=== PATIENT | female | born 2000 | race Caucasian/White ===

== ENCOUNTER 2021-03-12 17:58 | Observation (INO) ==
--- NOTE | 2021-03-12 18:08 | ED.PDOC ---
General ED Provider: Dr. AGA SAAVEDRA Chief Complaint: Abdominal Pain Stated Complaint: Upper abdominal pain with some vomiting for a day or so, no fever or diarrhea, no chest pain or cough Time Seen by Provider: 03/12/21 18:07 Mode of Arrival: Walk-In Information Source: Patient Exam Limitations: No limitations Nursing and Triage Documentation Reviewed and Agree: Yes Does patient meet sepsis criteria?: No System Inflammatory Response Syndrome: Not Applicable Sepsis Protocol: For patient's 13 years and over: Temp is 96.8 and below OR 101 and greater Pulse >90 BPM Resp >20/minute Acutely Altered Mental Status Are patient's symptoms suggestive of a new infection, such as: -Pneumonia -Skin, Soft Tissue -Endocarditis -UTI -Bone, Joint Infection -Implantable Device -Acute Abdominal Infection -Wound Infection -Meningitis -Blood Stream Catheter Infection -Unknown GI Complaint Exam Abdominal Pain Complaint/Exam Onset: Gradual Duration: day or two Symptoms Are: Still present Timing: Constant Initial Severity: Mild Current Severity: Moderate Location of Pain: Epigastric Character: Reports Aching Aggravating: Reports Food Alleviating: Reports None Associated Signs and Symptoms: Reports Nausea and Vomiting AAA Risk Factors: Reports None Cardiac Risk Factors: Reports None Ectopic Risk Factors: Reports None Ovarian Torsion Risk Factors: Reports Reproductive age Surgical Obstruction Risk Factors: Reports None Related Surgical History: Reports None Abdominal Findings: Present Other (TTP RUQ and epigast.) Review of Systems Review Of Systems Constitutional: Reports Malaise and Weakness Eyes: Reports No symptoms Ears, Nose, Mouth, Throat: Reports No symptoms Respiratory: Reports No symptoms Cardiac: Reports No symptoms GI: Reports Abdominal pain, Nausea, Poor appetite and Vomiting : Reports No symptoms Musculoskeletal: Reports No symptoms Skin: Reports No symptoms Neurological: Reports No symptoms Endocrine: Reports No symptoms Hematologic/Lymphatic: Reports No symptoms All Other Systems: Reviewed and Negative [facility] Medical History Depressive disorder Family History (Updated 03/13/21 @ 00:03 by RIVKA DALLAS RN) Mother No known health problems FATHER No known health problems Social History Smoking and tobacco status: Never smoker Substance use type: does not use Female Reproductive History Menstrual Hx Hysterectomy: No Hx Tubal Ligation: No Physical Exam Physical Exam Appearance: Reports Ill-appearing Ill-appearing: Moderate Pain Distress: Moderate Eyes: Reports NEMO ENT: Reports Oropharynx normal Neck: Supple Respiratory: Reports Airway patent and Breath sounds clear Cardiovascular: Reports Pulses normal GI/: Reports Soft and Nontender Musculoskeletal: Reports Normal strength and ROM intact Skin: Reports Warm and Dry Neurological: Reports Sensation intact and Motor intact Psychiatric: Reports Affect appropriate Interpretation Radiology Interpretation Radiology Interpretation By: Radiologist Radiology Results: Positive Exam Interpreted: CT Scan (abd/pel - pancreatitis) Critical Care Note Critical Care Note Total Critical Care Time (mins): 0 Course Course Hematology/Chemistry: 03/13/21 05:00 03/13/21 05:00 Orders, Labs, Meds: Lab Review 03/12/21 03/12/21 03/12/21 18:57 18:57 19:35 WBC 13.29 H RBC 5.11 Hgb 13.3 Hct 41.5 MCV 81.2 MCH 26.0 L MCHC 32.0 RDW Coeff of Hank 13.5 Plt Count 458 H Immature Gran % (Auto) 0.4 Neut % (Auto) 81.2 H Lymph % (Auto) 11.4 [place] % (Auto) 6.6 Eos % (Auto) 0.1 Baso % (Auto) 0.3 Neut # (Auto) 10.8 H Lymph # (Auto) 1.5 [place] # (Auto) 0.9 Eos # (Auto) 0.0 Baso # (Auto) 0.0 Immature Gran # (Auto) 0.1 Sodium Potassium Chloride Carbon Dioxide Anion Gap BUN Creatinine Estimated GFR (MDRD) BUN/Creatinine Ratio Glucose Calcium Total Bilirubin AST ALT Alkaline Phosphatase Total Protein Albumin Globulin Albumin/Globulin Ratio Amylase Lipase Urine Color Yellow Urine Clarity Clear Urine pH 6.0 Ur Specific [place] <=1.005 Urine Protein Negative Urine Glucose (UA) Negative Urine Ketones Negative Urine Blood Trace-intact H Urine Nitrite Negative Urine Bilirubin 1+ H Urine Urobilinogen 0.2 Ur Leukocyte Esterase Trace H Urine Microscopic RBC 2-5 Urine Microscopic WBC 2-5 Ur Squamous Epith Cells 10-20 Urine Bacteria Trace Urine Test Negative SARS CoV-2 RNA Rapid MADHU 03/12/21 03/12/21 19:35 20:55 WBC RBC Hgb Hct MCV MCH MCHC RDW Coeff of Hank Plt Count Immature Gran % (Auto) Neut % (Auto) Lymph % (Auto) [place] % (Auto) Eos % (Auto) Baso % (Auto) Neut # (Auto) Lymph # (Auto) [place] # (Auto) Eos # (Auto) Baso # (Auto) Immature Gran # (Auto) Sodium 141.3 Potassium 3.76 Chloride 102.7 Carbon Dioxide 26.6 Anion Gap 15.76 BUN 7.1 Creatinine 0.62 Estimated GFR (MDRD) 123.00 BUN/Creatinine Ratio 11.45 Glucose 104.4 Calcium 9.74 Total Bilirubin 4.11 H AST 181.2 H ALT 313.6 H Alkaline Phosphatase 168.8 H Total Protein 8.37 H Albumin 4.83 Globulin 3.54 Albumin/Globulin Ratio 1.36 Amylase 3318.1 H* Lipase 85659.3 H Urine Color Urine Clarity Urine pH Ur Specific [place] Urine Protein Urine Glucose (UA) Urine Ketones Urine Blood Urine Nitrite Urine Bilirubin Urine Urobilinogen Ur Leukocyte Esterase Urine Microscopic RBC Urine Microscopic WBC Ur Squamous Epith Cells Urine Bacteria Urine Test SARS CoV-2 RNA Rapid MADHU Negative Orders Category Date Time Status ACTIVITY .BR with BRP CARE 03/12/21 22:25 Active INTAKE & OUTPUT Q8HR CARE 03/12/21 22:25 Active VITAL SIGNS Q4HR CARE 03/12/21 22:25 Active AMYLASE Stat LAB 03/12/21 19:35 Completed CBC W/ AUTO DIFF DAILY@0600 LAB 03/13/21 05:00 Completed CBC W/ AUTO DIFF DAILY@0600 LAB 03/14/21 06:00 Ordered CBC W/ AUTO DIFF Stat LAB 03/12/21 19:35 Completed COMPREHENSIVE METABOLIC PANEL DAILY@0600 LAB 03/13/21 05:00 Completed COMPREHENSIVE METABOLIC PANEL DAILY@0600 LAB 03/14/21 06:00 Ordered COMPREHENSIVE METABOLIC PANEL Stat LAB 03/12/21 19:35 Completed LIPASE Stat LAB 03/12/21 19:35 Completed SARS COV-2 RNA RAPID MADHU Stat LAB 03/12/21 20:55 Completed URINALYSIS C & S IF INDICATED Stat LAB 03/12/21 18:57 Completed URINE Stat LAB 03/12/21 18:57 Completed Ciprofloxacin/D5w [Cipro 400 mg/200 ml D5w] MEDS 03/12/21 22:30 Active 400 mg in 200 ml IV Q12HR Hydromorphone HCl [Dilaudid 1 mg/ml Syringe] MEDS 03/12/21 21:25 Discontinued 1 mg IVP ONCE ONE Hydromorphone HCl [Dilaudid 1 mg/ml Syringe] MEDS 03/12/21 22:25 Active 1 mg IVP Q4HR PRN Metronidazole/Sodium Chloride [Flagyl 500 mg/100 ml] MEDS 03/12/21 22:30 Active 500 mg in 100 ml IV Q8HR Ondansetron HCl/Pf [Zofran 4 mg/2 ml] MEDS 03/12/21 22:25 Active 4 mg IVP Q4H PRN Ondansetron [Zofran Odt] MEDS 03/12/21 19:22 Discontinued 8 mg PO ONCE ONE Potassium Chloride/D5-0.45NACL [D5%-1/2Ns-KCl 20 Meq/l MEDS 03/12/21 21:11 Discontinued IV Patricia] 1,000 ml IV 125 mls/hr RESUSCITATION STATUS Routine OTHERS 03/12/21 22:[address] ABDOMEN/PELVIS WO CONTRAST Stat RADS 03/12/21 19:22 Completed Medications Generic Name Dose Route Start Last Admin Trade Name PressConnect PRN Reason Stop Dose Admin Hydromorphone HCl 1 mg 03/12/21 22:25 Hydromorphone Hcl 1 Mg/Ml Syringe IVP Q4HR PRN Pain Hydroxyzine HCl 25 mg 03/12/21 23:21 03/12/21 23:47 Hydroxyzine Hcl 25 Mg/Ml Vial IM 25 mg Q8H PRN Administration Nausea / Vomiting Ciprofloxacin/Dextrose 400 mg in 200 mls @ 200 mls/hr 03/12/21 22:30 03/12/21 23:04 Cipro 400 Mg/200 Ml D5w IV 03/15/21 22:29 200 mls/hr Q12HR RODNEY Administration Metronidazole 500 mg in 100 mls @ 100 mls/hr 03/12/21 22:30 03/13/21 05:32 Flagyl 500 Mg/100 Ml IV 03/15/21 22:29 100 mls/hr Q8HR RODNEY Administration Ondansetron HCl 4 mg 03/12/21 22:25 Ondansetron Hcl/Pf 4 Mg/2 Ml Sdv IVP Q4H PRN Nausea / Vomiting Discontinued Medications Generic Name Dose Route Start Last Admin Trade Name Freq PRN Reason Stop Dose Admin Hydromorphone HCl 1 mg 03/12/21 21:25 03/12/21 21:31 Hydromorphone Hcl 1 Mg/Ml Syringe IVP 03/12/21 21:26 1 mg ONCE ONE Administration Potassium Chloride/Dextrose/Sod Cl 1,000 mls @ 125 mls/hr 03/12/21 21:11 03/12/21 21:16 D5%-1/2ns-Kcl 20 Meq/L Iv Patricia IV 03/13/21 05:10 125 mls/hr .Q8H STA Administration Potassium Chloride/Dextrose/Sod Cl 1,000 mls @ 125 mls/hr 03/12/21 22:30 03/12/21 23:08 D5%-1/2ns-Kcl 20 Meq/L Iv Patricia IV 03/13/21 06:29 Not Given .Q8H STA Ondansetron HCl 8 mg 03/12/21 19:22 03/12/21 19:29 Ondansetron Hcl 4 Mg Tab.Rapdis PO 03/12/21 19:23 8 mg ONCE ONE Administration Vital Signs: Temp Pulse Resp BP Pulse Ox 03/12/21 21:02 98.4 F 70 18 125/87 99 03/12/21 17:59 97.3 F L 84 16 142/87 H 97 Discharge Plan Discharge Patient Disposition: PLACED OBSERVATION Discharge Problem: Acute gallstone pancreatitis ED Provider: AGA SAAVEDRA Condition: Stable Physician Progress Note: [Patient has gallstone pancreatitis, advised that she will need to be transferred for ERCP, etc. It is late now and she is quite anxious and asks that she be admitted here tonight, understands transfer will have to be tomorrow. Gave med, recheck labs in am, GB US in am. ]
[2021-03-12 19:06] LABS: BILIRUBIN,URINE 1+ (NEGATIVE); CLARITY,URINE Clear (CLEAR); COLOR,URINE Yellow (YELLOW); GLUCOSE, URINE (UA) Negative (NEGATIVE); KETONES,URINE Negative (NEGATIVE); LEUKOCYTE ESTERASE ,URINE Trace (NEGATIVE); NITRITE,URINE Negative (NEGATIVE); PROTEIN,URINE Negative (NEGATIVE); URINE, BLOOD Trace-intact (NEGATIVE); UROBILINOGEN,URINE 0.2 (0.2)
[2021-03-12 19:08] LABS: URINE PREGNANCY TEST NEGATIVE (NEGATIVE)
[2021-03-12 19:09] LABS: BACTERIA,URINE TRACE (NOT PRESENT)
[2021-03-12] MEDS ORDERED: ZOFRAN ODT PO ONE (19:22)
[2021-03-12 19:39] LABS: BASOPHILS % (AUTO) 0.3 % (0.0-3.0); EOSINOPHILS % (AUTO) 0.1 % (0.0-7.0); HEMATOCRIT 41.5 % (37.0-47.0); HEMOGLOBIN 13.3 g/dl (12.0-16.0); IMMATURE GRANULOCYTE # (AUTO) 0.1 (0.0-1.0); IMMATURE GRANULOCYTE % (AUTO) 0.4 % (0.0-5.0); LYMPHOCYTES # (AUTO) 1.5 K/uL (0.60-3.4); LYMPHOCYTES % (AUTO) 11.4 (10.0-50.0); MEAN CORPUSCULAR VOLUME 81.2 fl (81.0-99.0); MONOCYTES # (AUTO) 0.9 K/uL (0.4-2.0); MONOCYTES % (AUTO) 6.6 (0-10); NEUTROPHILS # (AUTO) 10.8 K/ul (2.0-6.9); NEUTROPHILS % (AUTO) 81.2 % (42.2-75.2); PLATELET COUNT 458 10^3/uL (140-440); RDW COEFFICIENT OF VARIATION 13.5 % (11.6-14.8); RED BLOOD COUNT 5.11 10^6/ul (4.20-5.40); WHITE BLOOD COUNT 13.29 K/ul (4.6-10.2)
--- NOTE | 2021-03-12 20:16 | CT ---
EXAM: CT of the abdomen pelvis without contrast History: Abdominal pain. Comparison: CT abdomen pelvis 03/12/2019 Technique: Multiplanar CT images through the abdomen pelvis were obtained without the administration of IV contrast Findings: Lung bases are clear. No acute osseous abnormalities. No renal stones and no hydronephrosis. No liver or splenic lesions. Gallbladder is not well distend ed. Possible gallbladder sludge. There is mild peripancreatic stranding. Adrenal glands are unrema rkable. The bowel obstruction. The appendix is normal. No free air and no ascites. No bladder wal l thickening. Uterus is not enlarged. No abdominal aortic aneurysm. Impression: 1. Early acute pancreatitis. 2. Possible gallbladder sludge or stones. Recommend ultrasound All CT scans are performed using dose optimization techniques as appropriate to the performed exam an d include at least one of the following: Automated exposure control, adjustment of the mA and/or kV according t o size, and the use of iterative reconstruction technique.
[2021-03-12 20:21] LABS: ALANINE AMINOTRANSFERASE 313.6 U/L (0-35); ALBUMIN 4.83 g/dL (3.5-5.0); ALKALINE PHOSPHATASE 168.8 U/L (38-126); ASPARTATE AMINO TRANSFERASE 181.2 U/L (14-36); BILIRUBIN,TOTAL 4.11 mg/dL (0.2-1.3); BLOOD UREA NITROGEN 7.1 mg/dL (7-17); CALCIUM 9.74 mg/dL (8.4-10.2); CARBON DIOXIDE 26.6 mmol/L (22-30.0); CHLORIDE 102.7 mmol/L (98-107); CREATININE 0.62 mg/dL (0.60-1.30); GLUCOSE 104.4 mg/dL (74-106); POTASSIUM 3.76 mmol/L (3.5-5.1); SODIUM 141.3 mmol/L (134.5-145); TOTAL PROTEIN 8.37 g/dL (6.3-8.2)
[2021-03-12 20:33] LABS: AMYLASE 3318.1 U/L (30-110)
[2021-03-12] MEDS ORDERED: D5%-1/2NS-KCL 20 MEQ/L IV SOL 1,000 ML IV STA ×2 (21:11→22:30)
[2021-03-12 21:16] LABS: LIPASE 45115.3 U/L (23-300)
[2021-03-12] MEDS ORDERED: DILAUDID 1 MG/ML SYRINGE IVP ONE (21:25)
[2021-03-12] MEDS ORDERED: DILAUDID 1 MG/ML SYRINGE IVP PRN (22:25)
[2021-03-12] MEDS ORDERED: ZOFRAN 4 MG/2 ML IVP PRN (22:25)
[2021-03-12] MEDS: CIPRO 400 MG/200 ML D5W 400 MG/200 ML BAG IV SCH (23:04)
[2021-03-12 23:21] VITALS: BMI 41.8
[2021-03-12] MEDS ORDERED: VISTARIL INJ IM PRN (23:21)
[2021-03-13] MEDS: FLAGYL 500 MG/100 ML 500 MG/100 ML BAG IV SCH ×4 (00:42→21:18)
[2021-03-13 05:17] LABS: BASOPHILS % (AUTO) 0.3 % (0.0-3.0); EOSINOPHILS % (AUTO) 0.1 % (0.0-7.0); HEMATOCRIT 36.8 % (37.0-47.0); HEMOGLOBIN 11.8 g/dl (12.0-16.0); IMMATURE GRANULOCYTE % (AUTO) 0.2 % (0.0-5.0); LYMPHOCYTES # (AUTO) 1.8 K/uL (0.60-3.4); LYMPHOCYTES % (AUTO) 18.6 (10.0-50.0); MEAN CORPUSCULAR HEMOGLOBIN 26.5 pg (27.0-31.0); MEAN CORPUSCULAR HGB CONC 32.1 (31.8-35.4); MEAN CORPUSCULAR VOLUME 82.7 fl (81.0-99.0); MONOCYTES # (AUTO) 0.5 K/uL (0.4-2.0); MONOCYTES % (AUTO) 5.3 (0-10); NEUTROPHILS # (AUTO) 7.1 K/ul (2.0-6.9); NEUTROPHILS % (AUTO) 75.5 % (42.2-75.2); PLATELET COUNT 403 10^3/uL (140-440); RDW COEFFICIENT OF VARIATION 13.8 % (11.6-14.8); RED BLOOD COUNT 4.45 10^6/ul (4.20-5.40); WHITE BLOOD COUNT 9.39 K/ul (4.6-10.2)
[2021-03-13 05:25] LABS: ALANINE AMINOTRANSFERASE 268.7 U/L (0-35); ALBUMIN 4.27 g/dL (3.5-5.0); ALKALINE PHOSPHATASE 142.3 U/L (38-126); ASPARTATE AMINO TRANSFERASE 121.9 U/L (14-36); BILIRUBIN,TOTAL 1.68 mg/dL (0.2-1.3); BLOOD UREA NITROGEN 6.3 mg/dL (7-17); CALCIUM 9.07 mg/dL (8.4-10.2); CARBON DIOXIDE 26.9 mmol/L (22-30.0); CHLORIDE 102.9 mmol/L (98-107); CREATININE 0.52 mg/dL (0.60-1.30); GLUCOSE 127.6 mg/dL (74-106); POTASSIUM 3.76 mmol/L (3.5-5.1); SODIUM 139.4 mmol/L (134.5-145); TOTAL PROTEIN 7.26 g/dL (6.3-8.2)
[2021-03-13 05:35] LABS: AMYLASE 1462.4 U/L (30-110)
[2021-03-13 05:54] LABS: LIPASE 13016.7 U/L (23-300)
[2021-03-13] MEDS ORDERED: SODIUM CHLORIDE 1,000 ML IV SCH (09:00)
[2021-03-13] MEDS: CIPRO 400 MG/200 ML D5W 400 MG/200 ML BAG IV SCH ×2 (09:26→20:15)
[2021-03-13] MEDS: SODIUM CHLORIDE 0.9%-KCL 20 MEQ 1,000 ML IV SCH ×2 (09:26→19:11)
--- NOTE | 2021-03-13 10:35 | US ---
EXAM: Right upper quadrant ultrasound HISTORY: Pain, nausea vomiting TECHNIQUE: Elam scale and color Doppler imaging of the right upper quadrant of the abdomen was perfo rmed. Comparison CT scan dated 03/12/2021. FINDINGS: The liver demonstrates normal parenchymal echotexture. Normal blood flow is identified wi thin the portal vein. The evaluation of the liver was limited due to the patient's body habitus. No obvious focal lesions are seen within the liver. The right kidney measures 11.1 cm in length. Ther e is no hydronephrosis. The common bile duct is measuring 3.8 mm diameter. The gallbladder was not well seen on this examination. Gallstones are seen. There is sludge seen within the gallbladder. T he gallbladder wall is measuring approximately 4.3 mm thick. The pancreas was not well seen. The in ferior vena cava was not well seen. IMPRESSION: Overall limited evaluation as described above. Cholelithiasis. There is suspicion for superimposed gallbladder wall thickening measuring 4.3 mm. A nuclear medicine HIDA scan can be obtained for further evaluation. The common bile duct is measuring 3.8 mm diameter.
[2021-03-14 05:12] LABS: BASOPHILS # (AUTO) 0.1 K/uL (0-0.2); BASOPHILS % (AUTO) 0.6 % (0.0-3.0); EOSINOPHILS # (AUTO) 0.1 K/ul (0.0-0.7); EOSINOPHILS % (AUTO) 0.6 % (0.0-7.0); HEMATOCRIT 36.2 % (37.0-47.0); HEMOGLOBIN 11.5 g/dl (12.0-16.0); IMMATURE GRANULOCYTE % (AUTO) 0.4 % (0.0-5.0); LYMPHOCYTES # (AUTO) 2.6 K/uL (0.60-3.4); LYMPHOCYTES % (AUTO) 31.2 (10.0-50.0); MEAN CORPUSCULAR HEMOGLOBIN 26.7 pg (27.0-31.0); MEAN CORPUSCULAR HGB CONC 31.8 (31.8-35.4); MONOCYTES # (AUTO) 0.6 K/uL (0.4-2.0); MONOCYTES % (AUTO) 6.7 (0-10); NEUTROPHILS # (AUTO) 5.1 K/ul (2.0-6.9); NEUTROPHILS % (AUTO) 60.5 % (42.2-75.2); PLATELET COUNT 365 10^3/uL (140-440); RDW COEFFICIENT OF VARIATION 14.1 % (11.6-14.8); RED BLOOD COUNT 4.31 10^6/ul (4.20-5.40); WHITE BLOOD COUNT 8.42 K/ul (4.6-10.2)
[2021-03-14] MEDS: FLAGYL 500 MG/100 ML 500 MG/100 ML BAG IV SCH ×2 (05:14→13:39)
[2021-03-14] MEDS: SODIUM CHLORIDE 0.9%-KCL 20 MEQ 1,000 ML IV SCH (05:15)
[2021-03-14 05:19] VITALS: BP 122/78
[2021-03-14 05:33] LABS: ALANINE AMINOTRANSFERASE 177.9 U/L (0-35); ALBUMIN 3.74 g/dL (3.5-5.0); ALKALINE PHOSPHATASE 116.5 U/L (38-126); ASPARTATE AMINO TRANSFERASE 49.1 U/L (14-36); BILIRUBIN,TOTAL 0.76 mg/dL (0.2-1.3); BLOOD UREA NITROGEN 5.4 mg/dL (7-17); CALCIUM 8.57 mg/dL (8.4-10.2); CARBON DIOXIDE 24.4 mmol/L (22-30.0); CHLORIDE 108.9 mmol/L (98-107); CREATININE 0.54 mg/dL (0.60-1.30); GLUCOSE 84.9 mg/dL (74-106); POTASSIUM 3.75 mmol/L (3.5-5.1); SODIUM 141.2 mmol/L (134.5-145); TOTAL PROTEIN 6.52 g/dL (6.3-8.2)
[2021-03-14 07:57] LABS: AMYLASE 280.1 U/L (30-110); LIPASE 1511.4 U/L (23-300)
--- NOTE | 2021-03-14 08:00 | PCM ---
Chief Complaint Chief Complaint: Nausea -vomiting and LUQ abdominal pain History of Present Illness History of Present Illness: This 20-year-old female patient presented to the emergency room the early evening of March 12, 2021 complaining of abdominal pain located in the left upper abdomen with associated Nausea and vomiting. She has a known past history of cholecystitis with cholelithiasis. She was evaluated with a CT scan of the abdomen in the emergency room and it was determined that she in fact did have a acute gallstone pancreatitis.She was seen at Dr Munoz office in July 2019 for similar problem by Ketty GUEVARA with plan to refer to surgeon and schedule a HIDA scan but apparently due to COVID 19 Pandemic her work up was put on hold with close follow up recommended Review of Systems Constitutional: Reports Weakness and Loss of appetite Eyes: Reports No symptoms Ears: Reports No symptoms Nose: Reports No symptoms Throat: Reports No symptoms Mouth: Reports No symptoms Respiratory: Reports No symptoms Cardiovascular: Reports No symptoms Gastrointestinal: Reports Abdominal pain, Nausea, Vomiting and Diarrhea Genitourinary: Reports No symptoms Neurological: Reports No symptoms Musculoskeletal: Reports No symptoms Skin: Reports No symptoms Immunology: Reports No symptoms Hematology: Reports No symptoms Endocrine: Reports No symptoms Psychiatric: Reports No symptoms Allergies Allergies Allergy/AdvReac Type Severity Reaction Status Date / Time No Known Allergies Allergy Verified 03/13/21 00:05 PFSH Medical History Depressive disorder Family History Mother No known health problems FATHER No known health problems Social History Smoking and tobacco status: Never smoker Substance use type: does not use Medications Medications: Medications Generic Name Dose Route Start Last Admin Trade Name Freq PRN Reason Stop Dose Admin Hydromorphone HCl 1 mg 03/12/21 22:25 Hydromorphone Hcl 1 Mg/Ml Syringe IVP Q4HR PRN Pain Hydroxyzine HCl 25 mg 03/12/21 23:21 03/12/21 23:47 Hydroxyzine Hcl 25 Mg/Ml Vial IM 25 mg Q8H PRN Administration Nausea / Vomiting Ciprofloxacin/Dextrose 400 mg in 200 mls @ 200 mls/hr 03/12/21 22:30 03/13/21 20:15 Cipro 400 Mg/200 Ml D5w IV 03/15/21 22:29 200 mls/hr Q12HR RODNEY Administration Metronidazole 500 mg in 100 mls @ 100 mls/hr 03/12/21 22:30 03/14/21 05:14 Flagyl 500 Mg/100 Ml IV 03/15/21 22:29 100 mls/hr Q8HR RODNEY Administration Potassium Chloride/Sodium Chloride 1,000 mls @ 125 mls/hr 03/13/21 08:30 03/14/21 05:15 Sodium Chloride 0.9%-Kcl 20 Meq IV 125 mls/hr .Q8H RODNEY Administration Ondansetron HCl 4 mg 03/12/21 22:25 Ondansetron Hcl/Pf 4 Mg/2 Ml Sdv IVP Q4H PRN Nausea / Vomiting Body Composition Height: 5 ft 5 in Weight: 251 lb Body Mass Index (BMI): 41.8 Vital Signs Temperature: 98.9 F Pulse Rate: 71 Respiratory Rate: 16 Blood Pressure: 122/78 O2 Sat by Pulse Oximetry: 98 Physical Examination Appearance: Reports Well-appearing, No pain distress and Obese Ill-appearing: Mild Pain Distress: Mild Eyes: Reports NEMO, EOMI, Conjunctiva clear, Right pupil size and Left pupil size ENT: Reports Ears normal, Nose normal and Oropharynx normal Neck: Supple Respiratory: Reports Airway patent, Breath sounds clear and Respirations nonlabored Cardiovascular: Reports RRR, Pulses normal, No rub and No murmur GI/: Reports Soft, No masses, Bowel sounds normal and Tender (mid epidgastrium and LUQ); Denies Hepatomegaly or Splenomegaly Musculoskeletal: Reports Normal strength, ROM intact and No edema Skin: Reports Warm, Dry and Normal color Neurological: Reports Sensation intact, Motor intact, Reflexes intact, Cranial nerves intact and Oriented Psychiatric: Reports Affect appropriate and Mood appropriate Lab/Tests/Diagnostic Imaging Lab/Tests/Diagnostic Imaging: Lab Review 03/12/21 03/12/21 03/12/21 18:57 18:57 19:35 WBC 13.29 H RBC 5.11 Hgb 13.3 Hct 41.5 MCV 81.2 MCH 26.0 L MCHC 32.0 RDW Coeff of Hank 13.5 Plt Count 458 H Immature Gran % (Auto) 0.4 Neut % (Auto) 81.2 H Lymph % (Auto) 11.4 [place] % (Auto) 6.6 Eos % (Auto) 0.1 Baso % (Auto) 0.3 Neut # (Auto) 10.8 H Lymph # (Auto) 1.5 [place] # (Auto) 0.9 Eos # (Auto) 0.0 Baso # (Auto) 0.0 Immature Gran # (Auto) 0.1 Sodium Potassium Chloride Carbon Dioxide Anion Gap BUN Creatinine Estimated GFR (MDRD) BUN/Creatinine Ratio Glucose Calcium Total Bilirubin AST ALT Alkaline Phosphatase Total Protein Albumin Globulin Albumin/Globulin Ratio Amylase Lipase Urine Color Yellow Urine Clarity Clear Urine pH 6.0 Ur Specific [place] <=1.005 Urine Protein Negative Urine Glucose (UA) Negative Urine Ketones Negative Urine Blood Trace-intact H Urine Nitrite Negative Urine Bilirubin 1+ H Urine Urobilinogen 0.2 Ur Leukocyte Esterase Trace H Urine Microscopic RBC 2-5 Urine Microscopic WBC 2-5 Ur Squamous Epith Cells 10-20 Urine Bacteria Trace Urine Test Negative SARS CoV-2 RNA Rapid MADHU 03/12/21 03/12/21 03/13/21 19:35 20:55 05:00 WBC 9.39 RBC 4.45 Hgb 11.8 L Hct 36.8 L MCV 82.7 MCH 26.5 L MCHC 32.1 RDW Coeff of Hank 13.8 Plt Count 403 Immature Gran % (Auto) 0.2 Neut % (Auto) 75.5 H Lymph % (Auto) 18.6 [place] % (Auto) 5.3 Eos % (Auto) 0.1 Baso % (Auto) 0.3 Neut # (Auto) 7.1 H Lymph # (Auto) 1.8 [place] # (Auto) 0.5 Eos # (Auto) 0.0 Baso # (Auto) 0.0 Immature Gran # (Auto) 0.0 Sodium 141.3 Potassium 3.76 Chloride 102.7 Carbon Dioxide 26.6 Anion Gap 15.76 BUN 7.1 Creatinine 0.62 Estimated GFR (MDRD) 123.00 BUN/Creatinine Ratio 11.45 Glucose 104.4 Calcium 9.74 Total Bilirubin 4.11 H AST 181.2 H ALT 313.6 H Alkaline Phosphatase 168.8 H Total Protein 8.37 H Albumin 4.83 Globulin 3.54 Albumin/Globulin Ratio 1.36 Amylase 3318.1 H* Lipase 72910.3 H Urine Color Urine Clarity Urine pH Ur Specific [place] Urine Protein Urine Glucose (UA) Urine Ketones Urine Blood Urine Nitrite Urine Bilirubin Urine Urobilinogen Ur Leukocyte Esterase Urine Microscopic RBC Urine Microscopic WBC Ur Squamous Epith Cells Urine Bacteria Urine Test SARS CoV-2 RNA Rapid MADHU Negative 03/13/21 03/13/21 03/14/21 05:00 05:00 04:39 WBC 8.42 RBC 4.31 Hgb 11.5 L Hct 36.2 L MCV 84.0 MCH 26.7 L MCHC 31.8 RDW Coeff of Hank 14.1 Plt Count 365 Immature Gran % (Auto) 0.4 Neut % (Auto) 60.5 Lymph % (Auto) 31.2 [place] % (Auto) 6.7 Eos % (Auto) 0.6 Baso % (Auto) 0.6 Neut # (Auto) 5.1 Lymph # (Auto) 2.6 [place] # (Auto) 0.6 Eos # (Auto) 0.1 Baso # (Auto) 0.1 Immature Gran # (Auto) 0.0 Sodium 139.4 Potassium 3.76 Chloride 102.9 Carbon Dioxide 26.9 Anion Gap 13.36 BUN 6.3 L Creatinine 0.52 L Estimated GFR (MDRD) 150.00 BUN/Creatinine Ratio 12.11 Glucose 127.6 H Calcium 9.07 Total Bilirubin 1.68 H D AST 121.9 H D ALT 268.7 H D Alkaline Phosphatase 142.3 H D Total Protein 7.26 Albumin 4.27 Globulin 2.99 Albumin/Globulin Ratio 1.42 Amylase 1462.4 H* D Lipase 37233.7 H Urine Color Urine Clarity Urine pH Ur Specific [place] Urine Protein Urine Glucose (UA) Urine Ketones Urine Blood Urine Nitrite Urine Bilirubin Urine Urobilinogen Ur Leukocyte Esterase Urine Microscopic RBC Urine Microscopic WBC Ur Squamous Epith Cells Urine Bacteria Urine Test SARS CoV-2 RNA Rapid MADHU 03/14/21 04:39 WBC RBC Hgb Hct MCV MCH MCHC RDW Coeff of Hank Plt Count Immature Gran % (Auto) Neut % (Auto) Lymph % (Auto) [place] % (Auto) Eos % (Auto) Baso % (Auto) Neut # (Auto) Lymph # (Auto) [place] # (Auto) Eos # (Auto) Baso # (Auto) Immature Gran # (Auto) Sodium 141.2 Potassium 3.75 Chloride 108.9 H Carbon Dioxide 24.4 Anion Gap 11.65 BUN 5.4 L Creatinine 0.54 L Estimated GFR (MDRD) 144.00 BUN/Creatinine Ratio 10.00 Glucose 84.9 Calcium 8.57 Total Bilirubin 0.76 AST 49.1 H D ALT 177.9 H D Alkaline Phosphatase 116.5 D Total Protein 6.52 Albumin 3.74 Globulin 2.78 Albumin/Globulin Ratio 1.34 Amylase Lipase Urine Color Urine Clarity Urine pH Ur Specific [place] Urine Protein Urine Glucose (UA) Urine Ketones Urine Blood Urine Nitrite Urine Bilirubin Urine Urobilinogen Ur Leukocyte Esterase Urine Microscopic RBC Urine Microscopic WBC Ur Squamous Epith Cells Urine Bacteria Urine Test SARS CoV-2 RNA Rapid MADHU Orders Category Date Time Status ADMIT OBSERVATION [PLACE PATIENT OBSERVATION] .TO ADMISSION 03/12/21 22:55 Active MEDSURG (NON-MONITORED BED) ACTIVITY .BR with BRP CARE 03/12/21 22:25 Active GIVE HS SNACK 2100 CARE 03/13/21 08:32 Active INTAKE & OUTPUT Q8HR CARE 03/12/21 22:25 Active NPO REMINDER: IMAGING ONCE CARE 03/12/21 22:32 Completed NPO REMINDER: IMAGING ONCE CARE 03/13/21 08:42 Completed VITAL SIGNS Q4HR CARE 03/12/21 22:25 Active BOOST BREEZE [SUPPLEMENT: BOOST BREEZE] DIETARY 03/13/21 Lunch Ordered CLEAR LIQUID DIET DIETARY 03/13/21 Lunch Ordered HS SNACK DIETARY 03/13/21 Dinner Ordered WET PRIMER POWDER BLENDER CONSULT [CONSULT WET PRIMER POWDER BLENDER] ONCE WET PRIMER POWDER BLENDER 03/13/21 09:31 Active AMYLASE Stat LAB 03/12/21 19:35 Completed AMYLASE Stat LAB 03/14/21 04:39 Received AMYLASE Timed LAB 03/13/21 05:00 Completed CBC W/ AUTO DIFF DAILY@0600 LAB 03/13/21 05:00 Completed CBC W/ AUTO DIFF DAILY@0600 LAB 03/14/21 04:39 Completed CBC W/ AUTO DIFF Stat LAB 03/12/21 19:35 Completed COMPREHENSIVE METABOLIC PANEL DAILY@0600 LAB 03/13/21 05:00 Completed COMPREHENSIVE METABOLIC PANEL DAILY@0600 LAB 03/14/21 04:39 Completed COMPREHENSIVE METABOLIC PANEL Stat LAB 03/12/21 19:35 Completed LIPASE Stat LAB 03/12/21 19:35 Completed LIPASE Stat LAB 03/14/21 04:39 Received LIPASE Timed LAB 03/13/21 05:00 Completed SARS COV-2 RNA RAPID MADHU Stat LAB 03/12/21 20:55 Completed URINALYSIS C & S IF INDICATED Stat LAB 03/12/21 18:57 Completed URINE Stat LAB 03/12/21 18:57 Completed Ciprofloxacin/D5w [Cipro 400 mg/200 ml D5w] MEDS 03/12/21 22:30 Active 400 mg in 200 ml IV Q12HR Hydromorphone HCl [Dilaudid 1 mg/ml Syringe] MEDS 03/12/21 21:25 Discontinued 1 mg IVP ONCE ONE Hydromorphone HCl [Dilaudid 1 mg/ml Syringe] MEDS 03/12/21 22:25 Active 1 mg IVP Q4HR PRN Hydroxyzine HCl [Vistaril Inj] MEDS 03/12/21 23:21 Active 25 mg IM Q8H PRN Metronidazole/Sodium Chloride [Flagyl 500 mg/100 ml] MEDS 03/12/21 22:30 Active 500 mg in 100 ml IV Q8HR Ondansetron HCl/Pf [Zofran 4 mg/2 ml] MEDS 03/12/21 22:25 Active 4 mg IVP Q4H PRN Ondansetron [Zofran Odt] MEDS 03/12/21 19:22 Discontinued 8 mg PO ONCE ONE Potassium Chloride in 0.9%NaCl [Sodium Chloride 0.9%- MEDS 03/13/21 08:30 Active KCl 20 Meq] 1,000 ml IV 125 mls/hr Potassium Chloride/D5-0.45NACL [D5%-1/2Ns-KCl 20 Meq/l MEDS 03/12/21 21:11 Discontinued IV Patricia] 1,000 ml IV 125 mls/hr Potassium Chloride/D5-0.45NACL [D5%-1/2Ns-KCl 20 Meq/l MEDS 03/12/21 22:30 Discontinued IV Patricia] 1,000 ml IV 125 mls/hr RESUSCITATION STATUS Routine OTHERS 03/12/21 22:[address] ABDOMEN/PELVIS WO CONTRAST Stat RADS 03/12/21 19:22 Completed HEPATOBILIARY W/EF/ NUC MED Stat RADS 03/14/21 08:40 Ordered ULTRASOUND ABDOMEN, RT. UPPER QUAD [U/S ABDOMEN RT RADS 03/13/21 08:00 Completed UPPER QUAD] Stat Medications Generic Name Dose Route Start Last Admin Trade Name Gena PRN Reason Stop Dose Admin Hydromorphone HCl 1 mg 03/12/21 22:25 Hydromorphone Hcl 1 Mg/Ml Syringe IVP Q4HR PRN Pain Hydroxyzine HCl 25 mg 03/12/21 23:21 03/12/21 23:47 Hydroxyzine Hcl 25 Mg/Ml Vial IM 25 mg Q8H PRN Administration Nausea / Vomiting Ciprofloxacin/Dextrose 400 mg in 200 mls @ 200 mls/hr 03/12/21 22:30 03/13/21 20:15 Cipro 400 Mg/200 Ml D5w IV 03/15/21 22:29 200 mls/hr Q12HR RODNEY Administration Metronidazole 500 mg in 100 mls @ 100 mls/hr 03/12/21 22:30 03/14/21 05:14 Flagyl 500 Mg/100 Ml IV 03/15/21 22:29 100 mls/hr Q8HR RODNEY Administration Potassium Chloride/Sodium Chloride 1,000 mls @ 125 mls/hr 03/13/21 08:30 03/14/21 05:15 Sodium Chloride 0.9%-Kcl 20 Meq IV 125 mls/hr .Q8H RODNEY Administration Ondansetron HCl 4 mg 03/12/21 22:25 Ondansetron Hcl/Pf 4 Mg/2 Ml Sdv IVP Q4H PRN Nausea / Vomiting Discontinued Medications Generic Name Dose Route Start Last Admin Trade Name Gena PRN Reason Stop Dose Admin Hydromorphone HCl 1 mg 03/12/21 21:25 03/12/21 21:31 Hydromorphone Hcl 1 Mg/Ml Syringe IVP 03/12/21 21:26 1 mg ONCE ONE Administration Potassium Chloride/Dextrose/Sod Cl 1,000 mls @ 125 mls/hr 03/12/21 21:11 03/12/21 21:16 D5%-1/2ns-Kcl 20 Meq/L Iv Patricia IV 03/13/21 05:10 125 mls/hr .Q8H STA Administration Potassium Chloride/Dextrose/Sod Cl 1,000 mls @ 125 mls/hr 03/12/21 22:30 03/12/21 23:08 D5%-1/2ns-Kcl 20 Meq/L Iv Patricia IV 03/13/21 06:29 Not Given .Q8H STA Ondansetron HCl 8 mg 03/12/21 19:22 03/12/21 19:29 Ondansetron Hcl 4 Mg Tab.Rapdis PO 03/12/21 19:23 8 mg ONCE ONE Administration Assessment (1) Acute gallstone pancreatitis: Status: Acute Code(s): K85.10 - Biliary acute pancreatitis without necrosis or infection SNOMED Code(s): 801826347 Plan Plan: Patient currently clinically improved. Will await results of Ultrasound of abdomen scheduuled today Will Schedule HIDA Scan for in AM and then depending on results will attempt to refer patient of GS or GI for consult. May need ERCP d/o findings plus Cholecystectomy. Explained treatment plans to patient and nursing staff.
[2021-03-14] MEDS: CIPRO 400 MG/200 ML D5W 400 MG/200 ML BAG IV SCH (08:13)
--- NOTE | 2021-03-14 08:13 | PCM.PROG ---
Date Seen by Provider: 03/14/21 Time Seen by Provider: 08:00 Subjective: "I feel much better", NPO since midnight, scheduled for HIDA scan today. Pain much improved. Objective: WD WN obese WF in no acute distress Vitals: T=98.9 F, P=71, R=16, PJ=501/78, SPO2=98 HEENT: ATNC, EOMI, PERRLA Neck: Supple, Pharynx clear Lungs: Clear to A/P CVS: RRR, no murmurs rubs or gallops Abdomen: Soft, nontender, nondistended. No rebound or guarding, still NPO Extremities: No CCEPR Neurological: Intact without focal deficits Skin: No abn noted Lab/Tests/Diagnostic Imaging: CT, GB US reviewed. No distinct stone seen but stranding and sludge noted. CBD 3.8 mm, mild GB thickening Plan: 1: Gallstone Pancreatitis-Amylase/lipase resolving. Vitals improving. Pain almost completely resolved. Will check results of HIDA scan and discuss with GI referral, anticipate transfer for ERCP or discharge home with outpatient follow up in 2-3 days.
--- NOTE | 2021-03-14 11:56 | NM ---
EXAM: Hepatobiliary scan HISTORY: Suspected cholecystitis. Stones and sludge. COMPARISON: None of this type. Ultrasound 03/13/2021. CT 03/12/2021. PROCEDURE: The patient was injected with 3.9 mCi of 99mTc mebrofenin intravenously. Images of the ab domen were obtained at 5 min intervals for 30 minutes. Additional images were obtained 45 minutes a nd 1 hour. The patient was then injected with 1.6 mcg of CCK by slow infusion while images of the gal lbladder were obtained to assess gallbladder contraction. FINDINGS: Sequential images demonstrate normal uptake of tracer into the liver. Activity is seen in the intrahepatic biliary ducts at about 10 minutes. The activity appears in the gallbladder at about 15 minutes. Subsequent images demonstrate increasing activity in the gallbladder. Activity first a ppears in the small bowel at about 30 minutes. There appears to be modest gastric reflux on the 45 an d 60-minute images. The gallbladder ejection fraction is 78%. IMPRESSION: 1. Normal appearance of tracer in the gallbladder and normal transit of tracer into the common bile duct, duodenum and small bowel. 2. The gallbladder ejection fraction is 78% (normal). 3. Incidental note is made of modest gastric reflux. Results faxed to the department for transmission to the patient's nurse/physician at 11:51 a.m.
[2021-03-14 14:59] VITALS: TEMP 98.2
--- NOTE | 2021-03-14 16:11 | PCM.PROG ---
Date Seen by Provider: 03/14/21 Time Seen by Provider: 16:10 Subjective: continues to feel fine, labs improved and Hida scan shows no obstruction if she tolerates po food she will be discharged this evening. Objective: Vitals: T=98.2 F, P=85, R=18, JM=939/78, SPO2=98 Lab/Tests/Diagnostic Imaging: Amylase and lipase continue to improve. Hida scan: [address] [address] Diagnostic Imaging [facility]UC MED REPORT : [id number] Signed Patient: ALEXANDER MARCANO Acct:[id number] Medical Record: [id number] : 2000 Loc: [facility] Room/Bed: 1 Age/Sex: 20 / F ADM Status: ADM CHENCHO Date of Service: 03/14/21 Ordering Physician: DIDI PHILLIPS DO Procedure(s): HEPATOBILIARY W/EF/ [facility] Report Number(s): [id number] Accession Number(s): [id number] cc: DIDI PHILLIPS DO EXAM: Hepatobiliary scan HISTORY: Suspected cholecystitis. Stones and sludge. COMPARISON: None of this type. Ultrasound 03/13/2021. CT 03/12/2021. PROCEDURE: The patient was injected with 3.9 mCi of 99mTc mebrofenin intravenously. Images of the abdomen were obtained at 5 min intervals for 30 minutes. Additional images were obtained 45 minutes and 1 hour. The patient was then injected with 1.6 mcg of CCK by slow infusion while images of the gallbladder were obtained to assess gallbladder contraction. FINDINGS: Sequential images demonstrate normal uptake of tracer into the liver. Activity is seen in the intrahepatic biliary ducts at about 10 minutes. The activity appears in the gallbladder at about 15 minutes. Subsequent images demonstrate increasing activity in the gallbladder. Activity first appears in the small bowel at about 30 minutes. There appears to be modest gastric reflux on the 45 and 60-minute images. The gallbladder ejection fraction is 78%. IMPRESSION: 1. Normal appearance of tracer in the gallbladder and normal transit of tracer into the common bile duct, duodenum and small bowel. 2. The gallbladder ejection fraction is 78% (normal). 3. Incidental note is made of modest gastric reflux. Results faxed to the department for transmission to the patient's nurse/phys ician at 11:51 a.m. Dictated By: LEWIS LIMON Signed By: LEWIS LIMON Dictated Date/Time: 03/14/21 1145 Transcribed Date/Time: 03/14/21 1145 Signed Date/Time: 03/14/21 1156 (1) Acute gallstone pancreatitis: Status: Acute Code(s): K85.10 - Biliary acute pancreatitis without necrosis or infection SNOMED Code(s): 251432619 Plan: Dischagrge home this evening.
--- NOTE | 2021-03-14 16:23 | PCM.PROG ---
Chief Complaint: RUQ abdomina pain History of Present Illness: Admitted 03/12/21 22:29, this 20 year old /WHITE/F with a few days of progressive RUQ pain. Know biliary tract disease and was seen in the ED. Ed workup revealed acute gallstone pancreatitis which required npo, pain meds and fluid resuscitation. She responded well to conservative treatment and GB US showed no stone in the duct and Hida scan shows no obstructions. Labs improved with resolution of pancreatic inflammation. Review of Systems: Constitutional: Weakness and Fatigue Eyes: No No symptoms, Blurred vision, Double-vision, Discharge, Itching, Pain, Redness, Photophobia or Other Ears: No No symptoms, Pain, Bleeding, Drainage, Ringing, Hearing loss or Other Nose: No No symptoms, Bleeding, Congestion, Discharge or Other Throat: No No symptoms, Pain, Swelling, Voice change or Other Mouth: No No symptoms, Bleeding, Pain, Swelling or Other Respiratory: No No symptoms, Cough, Shortness of air, Wheeze, Hemoptysis, Pain with breathing or Other Cardiovascular: No No symptoms, Chest pain, Left arm pain, Diaphoresis, PND, Orthopnea, Edema, Palpitations, Syncope or Other Gastrointestinal: Abdominal pain, Nausea, Vomiting and Other Genitourinary: No No symptoms, dysuria, hematuria, frequency, incontinence, flank pain, vaginal discharge, abnormal bleeding, pelvic pain or other Last Menstrual Cycle: ended 03/09/2021 Neurological: No symptoms Musculoskeletal: No symptoms Skin: No symptoms Immunology: No symptoms Hematology: No symptoms Endocrine: No symptoms Psychiatric: No symptoms Past Medical History: Biliary tract dysfunction Past Surgical History: None Past Family History: None Past Social History: None Physical Examination: Vitals: Temperature 98.2 F, Pulse 85, Respirations 18, Blood Pressure 122/78, SPO2 98 Body Measurements: Height 5 ft 5 in, Weight 251 lb, BMI 41.8-Obese Heent: ATNC, EOMI, PERRLA neck Supple, Pharynx clear Chest Clear to A/P Cor: RRR without murmurs rubs or gallops Abd: soft, nontender, nondistended. No rebound or guarding Ext no CCERP No CVA tenderness Education: Informed patient about dietary restrictions and need for follow up with GI eval and possible ERCP or surgery if symptoms return or worsen. Allergies Allergy/AdvReac Type Severity Reaction Status Date / Time No Known Allergies Allergy Verified 03/13/21 00:05 Medications: Medications Generic Name Dose Route Start Last Admin Trade Name Freq PRN Reason Stop Dose Admin Hydromorphone HCl 1 mg 03/12/21 22:25 Hydromorphone Hcl 1 Mg/Ml Syringe IVP Q4HR PRN Pain Hydroxyzine HCl 25 mg 03/12/21 23:21 03/12/21 23:47 Hydroxyzine Hcl 25 Mg/Ml Vial IM 25 mg Q8H PRN Administration Nausea / Vomiting Ciprofloxacin/Dextrose 400 mg in 200 mls @ 200 mls/hr 03/12/21 22:30 03/14/21 08:13 Cipro 400 Mg/200 Ml D5w IV 03/15/21 22:29 200 mls/hr Q12HR RODNEY Administration Metronidazole 500 mg in 100 mls @ 100 mls/hr 03/12/21 22:30 03/14/21 13:39 Flagyl 500 Mg/100 Ml IV 03/15/21 22:29 100 mls/hr Q8HR RODNEY Administration Potassium Chloride/Sodium Chloride 1,000 mls @ 125 mls/hr 03/13/21 08:30 03/14/21 05:15 Sodium Chloride 0.9%-Kcl 20 Meq IV 125 mls/hr .Q8H ORDNEY Administration Ondansetron HCl 4 mg 03/12/21 22:25 Ondansetron Hcl/Pf 4 Mg/2 Ml Sdv IVP Q4H PRN Nausea / Vomiting Lab/Tests/Diagnostic Imaging: Inital Amylase/Lipase elevated, [place] [address] Diagnostic Imaging [facility] MED REPORT : [id number] Signed Patient: ALEXANDER MARCANO Acct:[id number] Medical Record: [id number] : 2000 Loc: [facility] Room/Bed: [facility] Age/Sex: 20 / F ADM Status: ADM CHENCHO Date of Service: 03/14/21 Ordering Physician: DIDI PHILLIPS DO Procedure(s): HEPATOBILIARY W/EF/ [facility] MED Report Number(s): [id number] Accession Number(s): [id number] cc: DIDI PHILLIPS DO EXAM: Hepatobiliary scan HISTORY: Suspected cholecystitis. Stones and sludge. COMPARISON: None of this type. Ultrasound 03/13/2021. CT 03/12/2021. PROCEDURE: The patient was injected with 3.9 mCi of 99mTc mebrofenin intravenously. Images of the abdomen were obtained at 5 min intervals for 30 minutes. Additional images were obtained 45 minutes and 1 hour. The patient was then injected with 1.6 mcg of CCK by slow infusion while images of the gall bladder were obtained to assess gallbladder contraction. FINDINGS: Sequential images demonstrate normal uptake of tracer into the liver. Activity is seen in the intrahepatic biliary ducts at about 10 minutes. The activity appears in the gallbladder at about 15 minutes. Subsequent images demonstrate increasing activity in the gallbladder. Activity first appears in the small bowel at about 30 minutes. There appears to be modest gastric reflux on the 45 and 60-minute images. The gallbladder ejection fraction is 78%. IMPRESSION: 1. Normal appearance of tracer in the gallbladder and normal transit of tracer into the common bile duct, duodenum and small bowel. 2. The gallbladder ejection fraction is 78% (normal). 3. Incidental note is made of modest gastric reflux. Results faxed to the department for transmission to the patient's nurse/physician at 11:51 a.m. Dictated By: LEWIS LIMON Signed By: LEWIS LIMON Dictated Date/Time: 03/14/21 1145 Transcribed Date/Time: 03/14/21 1145 Signed Date/Time: 03/14/21 1156 ASSESSMENT: Please see below. (1) Acute gallstone pancreatitis: Status: Acute Code(s): K85.10 - Biliary acute pancreatitis without necrosis or infection SNOMED Code(s): 770870809 Recommendations/Plan: Discharge home with bland, soft diet, pushing fluids. PCP follow up on Wednesday. [facility] Medical History Depressive disorder Family History Mother No known health problems FATHER No known health problems Social History Smoking and tobacco status: Never smoker Substance use type: does not use Female Reproductive History Menstrual Age of Menarche: 11 Duration of menses: <3 days control method: none Hx Hysterectomy: No Hx Tubal Ligation: No
== END 2021-03-14 18:15 | disposition home or self-care (01) ==
LOC: MEDSURG A 17:58 → ED 17:58 → MEDSURG A 23:04
PROVIDERS: ADMIT Emergency Medicine; ATTEND Emergency Medicine
DX: R11.10 Vomiting, unspecified; K85.10 Biliary acute pancreatitis without necrosis or infection